=== PATIENT | female | born 1990 | race Hispanic/Latino ===

== ENCOUNTER 2025-03-24 13:42 | Emergency (ER) | payer OTHER ==
[~2025-03-24] VITALS: Ht 157.5 cm; Wt 81.6 kg
[2025-03-24] MEDS ORDERED: METH-662 PO (13:52)
[2025-03-24] MEDS ORDERED: KETO10TA2 PO (13:52)
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
[2025-03-24 14:03] VITALS: BP 123/78; PULSE 78; RESP 20; TEMP 98.9; O2SAT 99
--- NOTE | 2025-03-24 14:07 | NUR ---
PT AAOX4 NO DISTRESS, VITALS WNL PT REFUSED PAIN MEDICATION HERE IN ED, STATES SHE NEEDS TO TAKE CARE OF HER GRANDMOTHER. PT WILL HAVE RX SENT TO PHARMACY FOR PAIN IF NEEDED. NO IV AT THIS TIME. PT DRIVEN HOME BY FAMILY.
== END 2025-03-24 14:09 | disposition home or self-care (01) ==
LOC: EDH 13:42
DX: S16.1XXA Strain of muscle, fascia and tendon at neck level, initial encounter (principal); V89.2XXA Person injured in unspecified motor-vehicle accident, traffic, initial encounter; Y93.89 Activity, other specified; Y92.89 Other specified places as the place of occurrence of the external cause; Y99.8 Other external cause status
CPT/HCPCS: 99283